=== PATIENT | male | born 1960 | race Caucasian/White ===

== ENCOUNTER → 2017-02-27 | Outpatient (CLI) | payer OTHER ==
[~2017-02-27] MED LIST: ERYTHROMYC3.5 GM/TUB OP; LORTAB 5/500 501 TAB PO
--- NOTE | 2017-02-27 13:21 | RADIOLOGY REPORT PS360 ---
UGI SERIES W/SMALL BOWEL HISTORY: EPIGASTRIC PAIN, LUQ PAIN ORDERING PHYSICIAN: Sylvia Love APRN PATIENT AGE: 56 years COMPARISON: None FINDINGS: The esophagus, stomach, and duodenum have an unremarkable appearance. There is no evidence of hiatal hernia. No ulcer or mass evident. No mucosal abnormalities apparent. There is normal peristalsis. The duodenal C-loop is nondisplaced. Examination small bowel is unremarkable. No mass, obstructing lesion, or mucosal abnormalities evident. Spot views of the terminal ileum are unremarkable. FLUOROSCOPY TIME : 2 minutes and 31 seconds. IMPRESSION: Negative upper GI with small bowel follow-through
== END ==
LOC: RAD 09:35
DX: R10.12 Left upper quadrant pain (principal); R10.13 Epigastric pain